=== PATIENT | male | born 1990 | race Caucasian/White ===

== ENCOUNTER 2018-06-03 22:19 | Observation (INO) | payer MEDICAID ==
[2018-06-03] MEDS ORDERED: Sodium Chloride 0.9% 1,000 ML IV ONE (22:24)
[2018-06-03] MEDS ORDERED: Bacitracin Oint 1 GM U/D Packet TOP ONE (22:25)
[2018-06-03] MEDS ORDERED: Sodium Chloride 0.9% 2.5 ML Syringe FLUSH PRN (22:25)
[2018-06-03] MEDS ORDERED: Sodium Chloride 0.9% 10 ML Syringe FLUSH PRN (22:25)
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
[2018-06-03] MEDS ORDERED: Ondansetron 4 MG/2 ML SDV IVPUSH ONE (22:42)
[2018-06-03] MEDS ORDERED: Ondansetron 4 MG/2 ML SDV ONE (22:43)
[2018-06-03 23:00] LABS: CHLORIDE,CL 105 mmol/L (98-107); SODIUM,NA 141 mmol/L (136-148)
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
[2018-06-03] MEDS ORDERED: Lidocaine 1% with EPINEPHrine 1:100,000 20 ML MDV INJECT ONE (23:44)
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
[2018-06-04] MEDS ORDERED: Morphine 2 MG/ML Syringe IVPUSH ONE (00:27)
[2018-06-04] MEDS: Lactated Ringers 1,000 ML IV SCH ×2 (00:42→09:35)
[2018-06-04] MEDS: Cyclobenzaprine 10 MG Tab PO SCH ×3 (01:33→13:03)
[2018-06-04] MEDS: Diazepam 5 MG Tab PO SCH ×3 (01:34→13:02)
[2018-06-04] MEDS: Morphine 2 MG/ML Syringe IVPUSH PRN ×3 (02:19→09:50)
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
== END 2018-06-04 15:57 | disposition home or self-care (01) ==
LOC: MW.ED 22:19 → MW.MS 23:17
PROVIDERS: ADMIT Surgery; ATTEND Surgery
DX: S22.41XA Multiple fractures of ribs, right side, initial encounter for closed fracture (principal); S81.812A Laceration without foreign body, left lower leg, initial encounter; S37.011A Minor contusion of right kidney, initial encounter; S27.321A Contusion of lung, unilateral, initial encounter; S36.119A Unspecified injury of liver, initial encounter; S06.9X9A Unspecified intracranial injury with loss of consciousness of unspecified duration, initial encounter; F17.200 Nicotine dependence, unspecified, uncomplicated; V69.9XXA Occupant (driver) (passenger) of heavy transport vehicle injured in unspecified traffic accident, initial encounter
CPT/HCPCS: 36415; 70450; 70486; 71260; 72125; 73590; 74177; 80053; 80305; 81001; 83690; 85025; 85610; 93005; 96361; 96374; 96375; 96376; 99284; A9270; G0378; G0480; J2270; J2405; J7040; J7120; 12001